=== PATIENT | female | born 1980 | race Caucasian/White ===

== ENCOUNTER → 2017-04-13 | Outpatient (REF) | payer OTHER ==
[2016-12-07 20:00] VITALS: BMI 27.8
[~2017-04-13] MED LIST: AMOX-559 PO; IBUP800T37 PO; LOR5/325 PO; ONDA4TAB PO
[2017-04-13 13:20] LABS: PLATELET COUNT, AUTOMATED 255 K/uL (150-450)
== END ==
LOC: ZZSENDIN 12:44
PROVIDERS: ATTEND Obstetrics & Gynecology
DX: R50.9 Fever, unspecified (principal)
CPT/HCPCS: 85025

== ENCOUNTER → 2018-03-23 | Outpatient (CLI) | payer OTHER ==
[2016-12-07 20:00] VITALS: BMI 27.8
[~2018-03-23] MED LIST changes: +CIPR-214 PO; +CRAN200C5 PO; +PREN-127 PO
== END ==
LOC: LAB 10:46
PROVIDERS: ATTEND Nurse Practitioner Primary Care
DX: R30.0 Dysuria (principal)
CPT/HCPCS: 81001; 87077; 87088; 87186